=== PATIENT | female | born 1995 | race Hispanic/Latino ===

== ENCOUNTER 2018-01-17 09:45 | Emergency (ER) | payer BC, SELFPAY ==
[2018-01-17] MEDS ORDERED: Dexamethasone 4 mg/ml Vial ONE (10:43)
== END 2018-01-17 10:50 | disposition home or self-care (01) ==
LOC: ERS 09:45
DX: J02.9 Acute pharyngitis, unspecified (principal); R09.81 Nasal congestion; F41.9 Anxiety disorder, unspecified; F17.210 Nicotine dependence, cigarettes, uncomplicated; Z71.6 Tobacco abuse counseling
CPT/HCPCS: 87081; 87430; 99406; J1100

== ENCOUNTER 2018-11-13 21:58 | Emergency (ER) | payer BC, SELFPAY ==
[2018-11-13] MEDS ORDERED: Ketorolac Tromethamine 30 MG/ML VIAL ONE (22:31)
[2018-11-13] MEDS ORDERED: Ondansetron PF 4 MG/2 ML Vial ONE (22:31)
[2018-11-13 22:44] LABS: #Basophils 0.1 thou/uL (0.0-0.2); #Eosinphils 0.3 thou/uL (0.0-0.7); #Lymphocytes 3.3 thou/uL (1.20-3.40); #Monocytes 0.6 thou/uL (0.11-0.59); #Neutrophils 6.3 thou/uL (1.40-6.50); %Basophils 0.7 % (0.0-1.0); %Eosinophils 2.6 % (0.0-10.0); %Lymphocytes 31.7 % (21.0-51.0); %Monocytes 5.3 % (0.0-10.0); %Neutrophils 59.7 % (42.0-75.0); Hemoglobin 13.2 g/dL (12.0-16.0); Mean Corpuscular HGB CONC 34.6 g/dL (32.0-36.0); Mean Corpuscular Hemoglobin 32.7 pg (27.0-31.0); Mean Corpuscular Volume 94.3 fL (78.0-98.0); Mean Platelet Volume 7.6 fL (7.4-10.4); Platelet Count 224 thou/uL (130-400); RBC Distribution Width 11.3 % (11.5-14.5); Red Blood Cell (RBC) Count 4.03 mill/uL (4.20-5.40); White Blood Cell (WBC) Count 10.5 thou/uL (4.8-10.8)
[2018-11-13 22:57] LABS: Bilirubin Negative (Negative); Blood, Urine Negative (Negative); Clarity Clear (Clear); Glucose, Urine (Dipstick) Normal (Negative); Leukocyte Negative Leu/uL (Negative); Nitrite Negative (Negative); Protein, Urine (Dipstick) 20 mg/dL (Neg-Trace)
[2018-11-13 22:58] LABS: Pregnancy Test - Urine (BHCG) Negative (Negative); Pregu Control Background? CLEAR/WHITE (CLR/WHITE); Pregu Control Bar Appear? YES (CONTROL BAR); Specific Gravity 1.036 (1.002-1.036)
[2018-11-13 23:06] LABS: ALT (SGPT) 8 U/L (8-55); AST (SGOT) 11 U/L (5-34); Albumin 4.3 g/dL (3.5-5.0); Alkaline Phosphatase 61 U/L (40-150); Anion Gap 12 mmol/L (10-20); BUN (Urea Nitrogen) 13 mg/dL (7.0-18.7); Bilirubin, Total 0.7 mg/dL (0.2-1.2); Calc. Creatinine Clearance 0 mL/min (70-130); Calcium 9.6 mg/dL (7.8-10.44); Carbon Dioxide 24 mmol/L (22-29); Chloride 105 mmol/L (98-107); Estimated GFR-MDRD Greater than 90; Globulin 3.2 g/dL (2.4-3.5); Glucose 96 mg/dL (70-105); Potassium 3.6 mmol/L (3.5-5.1); Protein, Total 7.5 g/dL (6.0-8.3); Sodium 137 mmol/L (136-145)
--- NOTE | 2018-11-13 23:08 | RAD ---
TWO VIEWS OF THE CHEST: 11/13/18 COMPARISON: None. HISTORY: Nausea, vomiting, and diarrhea. FINDINGS: Lungs are clear. Heart and mediastinal contours are unremarkable. IMPRESSION: No acute findings. POS: OFF
== END 2018-11-13 23:46 | disposition home or self-care (01) ==
LOC: ERS 21:58
DX: A08.4 Viral intestinal infection, unspecified (principal); J06.9 Acute upper respiratory infection, unspecified; F31.9 Bipolar disorder, unspecified; F17.210 Nicotine dependence, cigarettes, uncomplicated
CPT/HCPCS: 71046; 80053; 81003; 81025; 85025; 87804; 96361; 96374; 96375; J1885; J2405

== ENCOUNTER 2022-11-10 12:54 | Inpatient (IN) | payer SELFPAY ==
[2022-11-10 14:48] VITALS: BMI 26.4
[2022-11-10] MEDS ORDERED: Ondansetron PF 4 MG/2 ML Vial IVP PRN (15:36)
[2022-11-10] MEDS ORDERED: Acetaminophen 650 MG Suppository PR PRN (15:36)
[2022-11-10] MEDS ORDERED: Ondansetron ODT 4 MG TAB PO PRN (15:36)
[2022-11-10] MEDS ORDERED: Acetaminophen 325 MG TAB PO PRN (15:36)
[2022-11-10] MEDS ORDERED: Nicotine 14 MG PATCH TD PRN (15:36)
[2022-11-10] MEDS ORDERED: Chlorhexidine Gluconate 15 ML UDCUP SSP SCH (15:57)
[2022-11-10] MEDS: Morphine 2 MG/ML VIAL SLOW IVP PRN ×2 (16:21→20:33)
[2022-11-10] MEDS: Sodium Chloride 0.9% 1,000 ML IV SCH (16:22)
[2022-11-10] MEDS: Ampicillin/Sulbactam 3 GM in Sodium Chloride 0.9% 100 ML IVPB SCH ×2 (17:21→23:16)
[2022-11-10] MEDS: Chlorhexidine Gluconate 15 ML UDCUP SSP SCH (20:34)
[2022-11-11] MEDS: Sodium Chloride 0.9% 1,000 ML IV SCH ×3 (03:42→23:09)
[2022-11-11] MEDS: Ampicillin/Sulbactam 3 GM in Sodium Chloride 0.9% 100 ML IVPB SCH ×4 (05:05→23:09)
[2022-11-11 05:58] LABS: #Monocytes 0.4 thou/uL (0.11-0.59); #Neutrophils 11.8 thou/uL (1.40-6.50); %Basophils 0.1 % (0.0-1.0); %Lymphocytes 8.4 % (21.0-51.0); %Neutrophils 88.1 % (42.0-75.0); Mean Corpuscular HGB CONC 33.7 g/dL (32.0-36.0); Mean Corpuscular Hemoglobin 31.7 pg (27.0-31.0); Mean Corpuscular Volume 94.2 fl (78.0-98.0); Mean Platelet Volume 10.4 fL (7.4-10.4); Platelet Count 230 10x3/uL (130-400); RBC Distribution Width 12.8 % (11.5-14.5); Red Blood Cell (RBC) Count 3.78 mill/uL (4.20-5.40); White Blood Cell (WBC) Count 13.4 10x3/uL (4.8-10.8)
[2022-11-11 06:27] LABS: Anion Gap 9 mmol/L (10-20); BUN (Urea Nitrogen) 9 mg/dL (7.0-18.7); Calc. Creatinine Clearance 154 mL/min (70-130); Calcium 8.7 mg/dL (7.8-10.44); Carbon Dioxide 23 mmol/L (22-29); Chloride 108 mmol/L (98-107); Estimated GFR 125; Glucose 145 mg/dL (70-105); Sodium 136 mmol/L (136-145)
[2022-11-11] MEDS: Chlorhexidine Gluconate 15 ML UDCUP SSP SCH ×3 (08:16→20:21)
[2022-11-11] MEDS: Morphine 2 MG/ML VIAL SLOW IVP PRN ×3 (08:27→20:24)
[2022-11-11] MEDS ORDERED: Bacitracin Zinc Ointment 30 gm TUBE ONE (10:15)
[2022-11-11] MEDS ORDERED: EPINEPHrine 1 MG/ML AMP ONE (10:15)
[2022-11-11] MEDS ORDERED: Lidocaine 1% (PF) 30 ML VIAL ONE (10:15)
[2022-11-11] MEDS ORDERED: Chlorhexidine Gluconate 15 ML UDCUP SSP ONE (10:15)
[2022-11-11] MEDS ORDERED: Fentanyl 250 MCG/5 ML VIAL ONE (10:17)
[2022-11-11] MEDS ORDERED: Lidocaine 2% 6 ML (Jelly) SYR ONE (10:47)
[2022-11-11 11:05] LABS: Pregnancy Test - Urine (BHCG) Negative (Negative); Pregu Control Background? CLEAR/WHITE (CLR/WHITE); Pregu Control Bar Appear? YES (CONTROL BAR); Specific Gravity 1.021 (1.002-1.036)
[2022-11-11] MEDS ORDERED: Rocuronium Bromide 10 MG/ML (10ML VIAL) ONE (11:14)
[2022-11-11] MEDS ORDERED: Dexamethasone 20 MG/5 ML VIAL ONE (11:14)
[2022-11-11] MEDS ORDERED: Glycopyrrolate 0.2 MG/ML 5 ML SYRINGE ONE (11:14)
[2022-11-11] MEDS ORDERED: PROPOFOL 200 MG/20 ML VIAL ONE (11:14)
[2022-11-11] MEDS ORDERED: NEOSTIGMINE 3 MG/3 ML SYR 3 MG/3 ML SYRINGE ONE (11:14)
[2022-11-11] MEDS ORDERED: Ondansetron PF 4 MG/2 ML Vial ONE (11:14)
[2022-11-11] MEDS ORDERED: PHENYLEPHRINE-NS 100 MCG/ML 10 ML SYRINGE ONE (11:14)
[2022-11-11] MEDS ORDERED: Lidocaine 1% PF 5 ML VIAL ONE (11:14)
[2022-11-11] MEDS ORDERED: SUGAMMADEX SODIUM 200 MG/2 ML VIAL ONE (11:49)
[2022-11-11] MEDS ORDERED: HYDROmorphone 2 MG/ML VIAL SLOW IVP PRN (12:06)
[2022-11-11] MEDS ORDERED: Promethazine HCl 25 MG/ML VIAL IM PRN (12:06)
[2022-11-11] MEDS ORDERED: Ondansetron HCl/PF 4 MG/2 ML Vial IVP PRN (12:06)
[2022-11-11] MEDS ORDERED: fentaNYL 50 mcg/mL 1 mL Vial ONE (12:16)
[2022-11-11] MEDS: HYDROcodone/Acetaminophen 5/325 mg Tablet PO PRN ×2 (16:24→23:10)
[2022-11-12] MEDS: Ampicillin/Sulbactam 3 GM in Sodium Chloride 0.9% 100 ML IVPB SCH ×4 (05:31→23:40)
[2022-11-12 06:28] LABS: #Monocytes 0.5 thou/uL (0.11-0.59); #Neutrophils 7.3 thou/uL (1.40-6.50); %Basophils 0.2 % (0.0-1.0); %Lymphocytes 27.5 % (21.0-51.0); %Monocytes 4.3 % (0.0-10.0); %Neutrophils 67.7 % (42.0-75.0); Hemoglobin 10.8 g/dL (12.0-16.0); Mean Corpuscular HGB CONC 32.1 g/dL (32.0-36.0); Mean Corpuscular Hemoglobin 31.5 pg (27.0-31.0); Mean Platelet Volume 10.5 fL (7.4-10.4); Platelet Count 226 10x3/uL (130-400); RBC Distribution Width 13.3 % (11.5-14.5); Red Blood Cell (RBC) Count 3.43 mill/uL (4.20-5.40); White Blood Cell (WBC) Count 10.8 10x3/uL (4.8-10.8)
[2022-11-12] MEDS: Morphine 2 MG/ML VIAL SLOW IVP PRN ×3 (06:33→21:02)
[2022-11-12 06:49] LABS: Anion Gap 3 mmol/L (10-20); BUN (Urea Nitrogen) 10 mg/dL (7.0-18.7); Calc. Creatinine Clearance 132 mL/min (70-130); Calcium 8.6 mg/dL (7.8-10.44); Carbon Dioxide 24 mmol/L (22-29); Chloride 112 mmol/L (98-107); Estimated GFR 121; Glucose 103 mg/dL (70-105); Potassium 4.7 mmol/L (3.5-5.1); Sodium 134 mmol/L (136-145)
[2022-11-12] MEDS: HYDROcodone/Acetaminophen 5/325 mg Tablet PO PRN ×3 (08:25→23:40)
[2022-11-12] MEDS: Chlorhexidine Gluconate 15 ML UDCUP SSP SCH ×3 (08:25→21:03)
[2022-11-12] MEDS: Sodium Chloride 0.9% 1,000 ML IV SCH ×2 (08:27→17:32)
[2022-11-12] MEDS ORDERED: Polyethylene Glycol 3350 17 GM Packet PO PRN (11:25)
[2022-11-12] MEDS ORDERED: Dexamethasone 4 mg/ml Vial SLOW IVP SCH (17:15)
[2022-11-13] MEDS: Sodium Chloride 0.9% 1,000 ML IV SCH ×2 (02:54→13:25)
[2022-11-13] MEDS: Ampicillin/Sulbactam 3 GM in Sodium Chloride 0.9% 100 ML IVPB SCH ×2 (05:09→13:25)
[2022-11-13 06:25] LABS: #Monocytes 0.2 thou/uL (0.11-0.59); #Neutrophils 5.9 thou/uL (1.40-6.50); %Basophils 0.1 % (0.0-1.0); %Lymphocytes 18.8 % (21.0-51.0); %Monocytes 3.2 % (0.0-10.0); %Neutrophils 77.5 % (42.0-75.0); Hemoglobin 11.9 g/dL (12.0-16.0); Mean Corpuscular HGB CONC 32.9 g/dL (32.0-36.0); Mean Corpuscular Hemoglobin 31.6 pg (27.0-31.0); Mean Platelet Volume 10.6 fL (7.4-10.4); Platelet Count 278 10x3/uL (130-400); RBC Distribution Width 12.9 % (11.5-14.5); Red Blood Cell (RBC) Count 3.77 mill/uL (4.20-5.40); White Blood Cell (WBC) Count 7.6 10x3/uL (4.8-10.8)
[2022-11-13 06:59] LABS: Anion Gap 12 mmol/L (10-20); BUN (Urea Nitrogen) 10 mg/dL (7.0-18.7); Calc. Creatinine Clearance 134 mL/min (70-130); Calcium 9.2 mg/dL (7.8-10.44); Carbon Dioxide 26 mmol/L (22-29); Chloride 107 mmol/L (98-107); Estimated GFR 121; Glucose 128 mg/dL (70-105); Potassium 4.7 mmol/L (3.5-5.1); Sodium 140 mmol/L (136-145)
[2022-11-13] MEDS: HYDROcodone/Acetaminophen 5/325 mg Tablet PO PRN ×2 (08:35→15:19)
[2022-11-13] MEDS: Chlorhexidine Gluconate 15 ML UDCUP SSP SCH (08:36)
[2022-11-13] MEDS: Morphine 2 MG/ML VIAL SLOW IVP PRN (11:49)
[2022-11-13 15:22] VITALS: BP 103/72; TEMP 98.1
== END 2022-11-13 15:28 | disposition home or self-care (01) | DRG 158 ==
LOC: T4-A 14:25
PROVIDERS: ADMIT Internal Medicine; ATTEND Internal Medicine
PROC: 0CTX0Z0 Resection of Lower Tooth, Single, Open Approach (ICD-10-PCS; principal; 2022-11-11)
PROC: 0N9R0ZZ Drainage of Maxilla, Open Approach (ICD-10-PCS; 2022-11-11)
PROC: 3E033XZ Introduction of Vasopressor into Peripheral Vein, Percutaneous Approach (ICD-10-PCS; 2022-11-11)
DX: K05.219 Aggressive periodontitis, localized, unspecified severity (principal); L02.01 Cutaneous abscess of face; K08.89 Other specified disorders of teeth and supporting structures; G89.18 Other acute postprocedural pain; K59.00 Constipation, unspecified; D72.829 Elevated white blood cell count, unspecified; F17.210 Nicotine dependence, cigarettes, uncomplicated; Z98.890 Other specified postprocedural states; Z71.6 Tobacco abuse counseling; Z88.0 Allergy status to penicillin
CPT/HCPCS: 36415; 80048; 81025; 85025; 87070; 87205; J0171; J0295; J1100; J2001; J2272; J2405; J2704; J3010; J3490; J7050